=== PATIENT | female | born 1930 | race Two or more races ===

== ENCOUNTER 2016-06-19 19:16 | Emergency (ER) | payer OTHER ==
[~2016-06-19] VITALS: Ht 152.4 cm; Wt 55.6 kg
[2016-06-19 19:17] VITALS: BP 122/50
[2016-06-19] MEDS ORDERED: DIPH,PERTUSS(ACELL),TET VAC/PF 0.5 ML IM-VACC ONE ×2 (19:30→20:09)
[2016-06-19] MEDS ORDERED: LIDOCAINE 1%, 20ML SQ ONE (19:30)
[2016-06-19] MEDS ORDERED: LIDOCAINE 1%, 20ML ONE ×2 (19:35→19:37)
== END 2016-06-19 20:54 ==
LOC: ED 20:30
DX: S61.211A Laceration without foreign body of left index finger without damage to nail, initial encounter (principal); S61.213A Laceration without foreign body of left middle finger without damage to nail, initial encounter; E11.9 Type 2 diabetes mellitus without complications; W26.0XXA Contact with knife, initial encounter; Y93.89 Activity, other specified; Y92.090 Kitchen in other non-institutional residence as the place of occurrence of the external cause; Y99.8 Other external cause status
CPT/HCPCS: 12001; 90471; 90715